=== PATIENT | female | born 1960 | race Caucasian/White ===

== ENCOUNTER 2017-11-22 23:55 | Emergency (ER) | payer SELFPAY ==
[~2017-11-22] VITALS: Ht 177.8 cm; Wt 99.8 kg
[2017-11-23 00:09] VITALS: BP 160/86
--- NOTE | 2017-11-23 00:20 | NUR ---
PT TAKEN TO BED 2
--- NOTE | 2017-11-23 00:20 | NUR ---
57 Y/O F W/C/O RT/ WRIST PAIN X 2 WKS, PT DENIES ANY INJURIES. MED HX KIDNEY STONE, DM. NO OTHER S/S OF DISTRESS NOTED AT THE MOMENT.
--- NOTE | 2017-11-23 00:21 | NUR ---
PT TAKEN FOR X-RAY VIA WHEELCHAIR.
[2017-11-23 01:36] VITALS: BP 155/72
--- NOTE | 2017-11-23 01:36 | NUR ---
Patient discharged with v/s stable. Written and verbal after care instructions given and explained. Patient alert, oriented and verbalized understanding of instructions. Ambulatory with steady gait. All questions addressed prior to discharge. ID band removed. Patient advised to follow up with PMD. Rx of TRAMADOL, MOTRIN given. Patient educated on indication of medication including possible reaction and side effects. Opportunity to ask questions provided and answered.
== END 2017-11-23 01:36 | disposition home or self-care (01) ==
LOC: MED 23:55
DX: S63.591A Other specified sprain of right wrist, initial encounter (principal); E11.9 Type 2 diabetes mellitus without complications; I10 Essential (primary) hypertension; Z88.5 Allergy status to narcotic agent; X58.XXXA Exposure to other specified factors, initial encounter; Y93.89 Activity, other specified; Y92.89 Other specified places as the place of occurrence of the external cause; Y99.8 Other external cause status
CPT/HCPCS: 73110; 99284